=== PATIENT | male | born 1990 | race African-American/Black ===

== ENCOUNTER 2019-04-01 15:04 | Emergency (ER) | payer MEDICAID ==
[~2019-04-01] VITALS: Ht 177.8 cm; Wt 70.3 kg
--- NOTE | 2019-04-01 15:06 | NUR ---
Patient to ER bed H1 to gown for evaluation. Side rails up.
--- NOTE | 2019-04-01 15:08 | NUR ---
Pt brought by self, A&Ox4, pt brought by police officers for medical clearance, pt has Hx of asthma and HIV, denies any symptoms at this time, skin pink and warm, cap refill <3, VSS, respirations even and unlabored.
--- NOTE | 2019-04-01 15:10 | NUR ---
Genesis perkins in [facility] - 04/01/19 at 1521 by [email or web address] Vianey Cooper [employer] IN[employer] at bedside examining patient
--- NOTE | 2019-04-01 15:10 | NUR ---
Sheldon Zuleta at bedside examining patient
[2019-04-01 15:13] VITALS: BP_SYST 145
--- NOTE | 2019-04-01 15:21 | NUR ---
Patient given written and verbal discharge instructions and verbalizes understanding. ER MD discussed with patient the results and treatment provided. Patient in stable condition. ID arm band removed. No Rx given. Patient educated on pain management and to follow up with PMD. Pain Scale 0/10. Opportunity for questions provided and answered. Medication side effect fact sheet provided.
== END 2019-04-01 15:21 ==
LOC: SED 15:04
DX: Z02.89 Encounter for other administrative examinations (principal); J45.909 Unspecified asthma, uncomplicated
CPT/HCPCS: 99283

== ENCOUNTER 2019-04-03 20:28 | Emergency (ER) | payer MEDICAID ==
[~2019-04-03] VITALS: Ht 177.8 cm; Wt 70.3 kg
[2019-04-03 20:37] VITALS: BP_SYST 144
--- NOTE | 2019-04-03 20:37 | NUR ---
Patient to ER [facility] 1 to gown for evaluation. Side rails up. Accompanied by JD
--- NOTE | 2019-04-03 21:04 | NUR ---
ER Dr. Marie at bedside examining patient.
--- NOTE | 2019-04-03 21:13 | NUR ---
Patient given written and verbal discharge instructions and verbalizes understanding. ER MD discussed with patient the results and treatment provided. Patient in stable condition. ID arm band removed. NO Rx given. Patient educated on pain management and to follow up with PMD. Pain Scale 0. Opportunity for questions provided and answered. Medication side effect fact sheet provided. ACCOMPANIED BY JD
== END 2019-04-03 21:13 ==
LOC: SED 20:28
DX: Z02.89 Encounter for other administrative examinations (principal); J45.909 Unspecified asthma, uncomplicated; R03.0 Elevated blood-pressure reading, without diagnosis of hypertension
CPT/HCPCS: 99283